=== PATIENT | female | born 1935 | race African-American/Black ===

== ENCOUNTER 2021-10-04 14:33 | Inpatient (IN) | payer MEDICARE ==
[~2021-10-04] VITALS: Ht 172.7 cm; Wt 100.0 kg
[~2021-10-04 14:33] MED LIST: AMLO5TAB4 PO; ATOR10TA PO; CLON0.2T PO; IBUP-1027 PO; ISOS60TA55 PO; LABE200T4 PO; METO100T7 PO; OLME20TA17 PO; PANT40TA77 PO; POLY17PO29 PO; SUCR1TAB35 PO
[2021-10-04 15:21] LABS: BASO # 0.1 x10^3/uL (0.0-0.2); BASO % 1 % (0-3); EOS # 0.1 x10^3/uL (0.0-0.7); EOS % 2 % (0-3); HEMATOCRIT 36.5 % (36.0-47.0); HEMOGLOBIN 12.4 g/dL (12.0-15.5); LYMPH # 0.9 x10^3/uL (1.0-4.8); LYMPH % 16 % (24-48); MEAN CORPUSCULAR HEMOGLOBIN 30 pg (25-35); MEAN CORPUSCULAR HGB CONC 34 g/dL (31-37); MEAN CORPUSCULAR VOLUME 87 fL (79-100); MONO # 0.7 x10^3/uL (0.0-1.1); MONO % 12 % (0-9); NEUT # 3.9 x10^3/uL (1.8-7.7); NEUT % 69 % (31-73); PLATELET COUNT 216 x10^3/uL (140-400); RED BLOOD COUNT 4.19 x10^6/uL (3.50-5.40); RED CELL DISTRIBUTION WIDTH 13.8 % (11.5-14.5); WHITE BLOOD COUNT 5.7 x10^3/uL (4.0-11.0)
[2021-10-04 15:30] LABS: CALCIUM 9.2 mg/dL (8.5-10.1); CREATININE 1.5 mg/dL (0.6-1.0); GFR 39.7; POTASSIUM 4.1 mmol/L (3.5-5.1)
[2021-10-04 15:37] LABS: ALBUMIN 3.4 g/dL (3.4-5.0); ALBUMIN/GLOBULIN RATIO 0.9 (1.0-1.7); TOTAL BILIRUBIN 0.5 mg/dL (0.2-1.0); TOTAL PROTEIN 7.2 g/dL (6.4-8.2)
--- NOTE | 2021-10-04 16:08 | RAD ---
Study: XR CHEST 1V Indication: Chest pain. Comparison: 06/18/2016 Findings: The cardiomediastinal silhouette is prominent in size. Aortic calcific atherosclerosis. Symmetric hil a. Increased lung markings bilaterally and hazy increased attenuation at the right lung base. A componen t of atelectasis and summation artifact is favored to account for the appearance of the lung bases. N o layering effusion or pneumothorax. Osteopenia. Advanced arthrosis at the shoulders. Impression: Prominence of the cardiomediastinal silhouette. Increased lung markings could be in part from interst itial edema but there is no layering effusion. Electronically signed by: ELFEGO CAMP MD (10/04/2021 4:05 PM) [facility]
--- NOTE | 2021-10-04 16:28 | EKG ---
[facility] [address] [place] [address] Test Date: 2021-10-04 Test Time: 16:11:45 Pat Name: CYNDI TORRES Department: Room: Gender: F Template Fitter: : 1935 Requested By: CHADWICK BEAVERS Order Number: [id number] Reading MD: Robert Oates MD Measurements Intervals [place] Rate: 71 P: 26 NC: 172 QRS: -24 QRSD: 90 T: 24 QT: 492 QTc: 535 Interpretive Statements PROBABLE SR BASELINE ARTIFACT RECOMMEND REPEAT EKG Electronically Signed On 10-05-2021 13:25:54 WELDING TEACHER by Robert Oates MD
--- NOTE | 2021-10-04 16:29 | PHYS DOC ---
Past Medical History Past Medical History: Arthritis, High Cholesterol, Hypertension Additional Past Medical Histor: "heart blockage",over active bladder Past Surgical History: Other Additional Past Surgical Histo: breast biopsy Smoking Status: Never Smoker Alcohol Use: None Drug Use: None General Adult EDM: Chief Complaint: RIB PAIN HPI: HPI: Patient is an 86-year-old female who presents to the emergency department today for left-sided rib pain that started this morning. Patient reports that the pain is worse with movement. She rates it 10 out of 10. No treatment prior to arrival.. She reports chronic shortness of breath due to CHF. She denies nausea, vomiting, cough, fevers, injuries, falls, abdominal pain. Review of Systems: Review of Systems: Constitutional: See HPI Respiratory: See HPI Cardiovascular: See HPI GI: See HPI Musculoskeletal: See HPI Heart Score: C/O Chest Pain: Yes HEART Score for Chest Pain: HEART Score for Chest Pain Response (Comments) Value History Slighlty/Non-Suspicious 0 ECG Normal 0 Age > 65 2 Risk Factors >3 Risk Factors or Hx CAD 2 Troponin < Normal Limit 0 Total 4 Risk Factors: Risk Factors: DM, Current or recent (<one month) smoker, HTN, HLP, family history of CAD, obesity. Risk Scores: Score 0 - 3: 2.5% MACE over next 6 weeks - Discharge Home Score 4 - 6: 20.3% MACE over next 6 weeks - Admit for Clinical Observation Score 7 - 10: 72.7% MACE over next 6 weeks - Early Invasive Strategies Allergies: Allergies: Allergies Coded Allergies Type Severity Reaction Last Updated Verified ciprofloxacin Allergy Intermediate 06/18/16 Yes clarithromycin Allergy Intermediate 06/18/16 Yes ezetimibe Allergy Intermediate 06/18/16 Yes Uncoded Allergies Type Severity Reaction Last Updated Verified antibiotic Adverse Reaction Mild 06/18/16 Physical Exam: PE: Constitutional: Well developed, well nourished, no acute distress, non-toxic appearance. [] HENT: Normocephalic, atraumatic, bilateral external ears normal, oropharynx moist, no oral exudates, nose normal. [] Eyes: PERRLA, EOMI, conjunctiva normal, no discharge. [] Neck: Normal range of motion, no tenderness, supple, no stridor. [] Cardiovascular:Heart rate regular rhythm, no murmur [] Lungs & Thorax: Bilateral breath sounds clear to auscultation [] Abdomen: Bowel sounds normal, soft, no tenderness, no masses, no pulsatile masses. [] Skin: Warm, dry, no erythema, no rash. [] Back: No tenderness, no CVA tenderness. [] Extremities: No tenderness, no cyanosis, no clubbing, ROM intact, no edema. [] Neurologic: Alert and oriented X 3, normal motor function, normal sensory function, no focal deficits noted. [] Psychologic: Affect normal, judgement normal, mood normal. [] Current Patient Data: Labs: Laboratory Tests Test 10/04/21 15:10 White Blood Count 5.7 x10^3/uL (4.0-11.0) Red Blood Count 4.19 x10^6/uL (3.50-5.40) Hemoglobin 12.4 g/dL (12.0-15.5) Hematocrit 36.5 % (36.0-47.0) Mean Corpuscular Volume 87 fL (79-100) Mean Corpuscular Hemoglobin 30 pg (25-35) Mean Corpuscular Hemoglobin Concent 34 g/dL (31-37) Red Cell Distribution Width 13.8 % (11.5-14.5) Platelet Count 216 x10^3/uL (140-400) Neutrophils (%) (Auto) 69 % (31-73) Lymphocytes (%) (Auto) 16 % (24-48) L Monocytes (%) (Auto) 12 % (0-9) H Eosinophils (%) (Auto) 2 % (0-3) Basophils (%) (Auto) 1 % (0-3) Neutrophils # (Auto) 3.9 x10^3/uL (1.8-7.7) Lymphocytes # (Auto) 0.9 x10^3/uL (1.0-4.8) L Monocytes # (Auto) 0.7 x10^3/uL (0.0-1.1) Eosinophils # (Auto) 0.1 x10^3/uL (0.0-0.7) Basophils # (Auto) 0.1 x10^3/uL (0.0-0.2) Sodium Level 140 mmol/L (136-145) Potassium Level 4.1 mmol/L (3.5-5.1) Chloride Level 107 mmol/L (98-107) Carbon Dioxide Level 29 mmol/L (21-32) Anion Gap 4 (6-14) L Blood Urea Nitrogen 23 mg/dL (7-20) H Creatinine 1.5 mg/dL (0.6-1.0) H Estimated GFR (Cockcroft-Gault) 39.7 BUN/Creatinine Ratio 15 (6-20) Glucose Level 115 mg/dL (70-99) H Calcium Level 9.2 mg/dL (8.5-10.1) Total Bilirubin 0.5 mg/dL (0.2-1.0) Aspartate Amino Transferase (AST) 24 U/L (15-37) Alanine Aminotransferase (ALT) 30 U/L (14-59) Alkaline Phosphatase 85 U/L (46-116) Troponin I High Sensitivity 10 ng/L (4-50) Total Protein 7.2 g/dL (6.4-8.2) Albumin 3.4 g/dL (3.4-5.0) Albumin/Globulin Ratio 0.9 (1.0-1.7) L Laboratory Tests 10/04/21 15:10 Laboratory Tests 10/04/21 15:10 Vital Signs: Vital Signs Date Time Temp Pulse Resp B/P (MAP) Pulse Ox O2 Delivery O2 Flow Rate FiO2 10/04/21 14:51 99.4 79 18 182/88 (119) 98 Room Air 99.4 EKG: EKG: [] EKG performed by ER staff at 1503 shows sinus rhythm with rate of 73, poor EKG due to patient's tremors and it will need to be repeated, read by Dr. Everett at 1507 Repeat EKG performed at 1611 by ER staff shows sinus rhythm with a rate of 71, no STEMI read by Dr. Everett at 1614 Radiology/Procedures: Radiology/Procedures: []PROCEDURE: PORTABLE CHEST 1V Study: XR CHEST 1V Indication: Chest pain. Comparison: 06/18/2016 Findings: The cardiomediastinal silhouette is prominent in size. Aortic calcific atherosclerosis. Symmetric vidhi. Increased lung markings bilaterally and hazy increased attenuation at the right lung base. A component of atelectasis and summation artifact is favored to account for the appearance of the lung bases. No layering effusion or pneumothorax. Osteopenia. Advanced arthrosis at the shoulders. Impression: Prominence of the cardiomediastinal silhouette. Increased lung markings could be in part from interstitial edema but there is no layering effusion. Electronically signed by: ELFEGO CAMP MD (10/04/2021 4:05 PM) [facility] DICTATED and SIGNED BY: ELFEGO CAMP MD DATE: 10/04/21 [id number] 0 Course & Med Decision Making: Course & Med Decision Making Pertinent Labs and Imaging studies reviewed. (See chart for details) [] Patient presents to the emergency department for left-sided rib pain, it is worse with movement sharp and shooting. She has a history of hypertension, CHF, hyperlipidemia and obesity. Work-up in the ER consisted of blood work, EKG, chest x-ray. Chest x-ray showed increased lung markings indicating possible interstitial edema. CBC unremarkable. Patient's BUN and creatinine were mildly elevated but this is consistent with previous lab findings for patient. Patient's troponin was negative. Her heart score is 4. Due to this, I discussed patient's findings with her and she is agreeable to be admitted for serial troponins and cardiology consultation. I discussed patient's case with Dr. Rodriguez and he agreed to admit the patient under his services. ER bridge orders placed. 1757. Camilla Disclaimer: Camilla Disclaimer: This electronic medical record was generated, in whole or in part, using a voice recognition dictation system. Departure Departure Impression: Primary Impression: Chest pain Qualified Codes: R07.9 - Chest pain, unspecified Disposition: 09 ADMITTED INPATIENT Admitting Physician: Natasha Rodriguez Condition: STABLE Referrals: NATASHA RODRIGUEZ MD (PCP) CHADWICK BEAVERS DIRECTOR OF DANCE Oct 04, 2021 16:29
[2021-10-04] MEDS ORDERED: fentaNYL PF VIAL 100 MCG/2 ML VIAL IVP ONE (17:45)
[2021-10-04] MEDS ORDERED: fentaNYL PF VIAL 100 MCG/2 ML VIAL IV PRN (18:00)
[2021-10-04] MEDS ORDERED: LOSA-73 PO (20:28)
[2021-10-04] MEDS ORDERED: MONT10TA49 PO (20:28)
[2021-10-04] MEDS ORDERED: FURO40TA4 PO (20:28)
[2021-10-04] MEDS ORDERED: ASPI-630 PO (20:30)
[2021-10-04 20:35] VITALS: BP 197/90
[2021-10-04] MEDS ORDERED: ACET500T33 PO (20:53)
[2021-10-04] MEDS ORDERED: CALC300T5 PO (22:14)
[2021-10-04] MEDS ORDERED: ACETAMINOPHEN 500 MG TABLET PO PRN (22:45)
[2021-10-04] MEDS ORDERED: POLYETHYLENE GLYCOL 3350 17 GM PACKET. PO PRN (22:45)
[2021-10-04] MEDS ORDERED: CALCIUM CARBONATE 500 MG TAB.CHEW PO PRN (23:00)
[2021-10-04 23:03] VITALS: BP 197/94
[2021-10-05] MEDS: ACETAMINOPHEN 325 MG TABLET. PO PRN ×2 (00:56→12:06)
[2021-10-05] MEDS: hydrALAZINE 20 MG/ML VIAL. IVP PRN ×2 (01:00→09:04)
[2021-10-05 03:59] VITALS: BP 174/84
[2021-10-05 05:33] LABS: BASO % 1 % (0-3); EOS # 0.2 x10^3/uL (0.0-0.7); EOS % 4 % (0-3); HEMATOCRIT 36.9 % (36.0-47.0); HEMOGLOBIN 12.1 g/dL (12.0-15.5); LYMPH # 1.1 x10^3/uL (1.0-4.8); LYMPH % 25 % (24-48); MEAN CORPUSCULAR HEMOGLOBIN 29 pg (25-35); MEAN CORPUSCULAR HGB CONC 33 g/dL (31-37); MEAN CORPUSCULAR VOLUME 87 fL (79-100); MONO # 0.6 x10^3/uL (0.0-1.1); MONO % 14 % (0-9); NEUT # 2.5 x10^3/uL (1.8-7.7); NEUT % 57 % (31-73); PLATELET COUNT 210 x10^3/uL (140-400); RED BLOOD COUNT 4.23 x10^6/uL (3.50-5.40); RED CELL DISTRIBUTION WIDTH 14.2 % (11.5-14.5); WHITE BLOOD COUNT 4.4 x10^3/uL (4.0-11.0)
[2021-10-05 05:55] LABS: ALBUMIN 3.3 g/dL (3.4-5.0); ALBUMIN/GLOBULIN RATIO 1.1 (1.0-1.7); CALCIUM 8.8 mg/dL (8.5-10.1); CREATININE 1.2 mg/dL (0.6-1.0); GFR 51.4; POTASSIUM 3.5 mmol/L (3.5-5.1); TOTAL BILIRUBIN 0.5 mg/dL (0.2-1.0); TOTAL PROTEIN 6.3 g/dL (6.4-8.2)
[2021-10-05 07:00] VITALS: BP 202/93
[2021-10-05] MEDS: PANTOPRAZOLE 40 MG TABLET.DR. PO SCH (07:00)
[2021-10-05] MEDS: ASPIRIN CHEWABLE 81 MG TABLET. PO SCH (09:00)
[2021-10-05] MEDS: LOSARTAN POTASSIUM 50 MG TABLET. PO SCH (09:00)
[2021-10-05] MEDS: LABETALOL HCL 200 MG TABLET PO SCH ×2 (09:00→21:28)
[2021-10-05] MEDS: FUROSEMIDE 20 MG TABLET PO SCH (09:00)
[2021-10-05] MEDS: ISOSORBIDE MONONITRATE ER 30 MG TAB.ER.24H PO SCH (09:00)
--- NOTE | 2021-10-05 09:53 | PDOC ---
Provider Note Date of Service: DATE: 10/05/21 TIME: 09:52 Provider Note H&P [id number]. Justifications for Admission Other Justification NATASHA PATEL MD Oct 05, 2021 09:53
[2021-10-05] MEDS: POTASSIUM CHLORIDE 20 MEQ TABLET.ER. PO SCH (10:05)
[2021-10-05 11:00] VITALS: BP 189/85
--- NOTE | 2021-10-05 11:14 | PDOC2 ---
MEY SYED COMMUNICATIONS ENGINEERING TECHNICIAN 10/05/21 1114: CARDIAC CONSULT DATE OF CONSULT Date of Consult DATE: 10/05/21 TIME: 10:55 REASON FOR CONSULT Reason for Consult: Chest pain REFERRING PHYSICIAN Referring Physician: Atul SOURCE Source: Chart review HISTORY OF PRESENT ILLNESS HISTORY OF PRESENT ILLNESS This is an 86 yo female admitted for complaisn left sided rib pain. which is reproducible with movement. No nausea vomiting. No fever or chills. Could not remember and episode of falls or recent injury nor heavy lifting. She does have some SOA with exertion but she does not move as much. No palpitations. She has been vaccinated for covid-19. PAST MEDICAL HISTORY Cardiovascular: CHF, HTN, Hyperlipidemia GI: GERD Musculoskeletal: Osteoarthritis PAST SURGICAL HISTORY Past Surgical History: Breast Biopsy, Cataract Removal FAMILY HISTORY Family History noncontributory SOCIAL HISTORY Smoke: No ALCOHOL: none Lives: with Family CURRENT MEDICATIONS CURRENT MEDICATIONS Current Medications Medications (Trade) Dose Ordered Sig/Kam Route PRN Reason Start Time Stop Time Status Last Admin Dose Admin Hydralazine HCl (Apresoline Inj) 10 mg PRN Q4HRS PRN IVP ELEVATED BP, SEE COMMENTS 10/04/21 22:45 10/05/21 09:04 Acetaminophen (Tylenol) 650 mg PRN Q6HRS PRN PO MILD PAIN / TEMP > 100.3'F 10/04/21 23:00 10/05/21 00:56 ALLERGIES ALLERGIES: Coded Allergies: amlodipine (Verified Allergy, Intermediate, Swelling, 10/05/21) extremity swelling ciprofloxacin (Verified Allergy, Intermediate, 06/18/16) clarithromycin (Verified Allergy, Intermediate, 06/18/16) ezetimibe (Verified Allergy, Intermediate, 06/18/16) atorvastatin (Verified Allergy, Unknown, 10/05/21) ROS Review of System 14 point ROS evaluated with pertinent positives noted per HPI PHYSICAL EXAM General: Alert, Oriented X3, Cooperative, No acute distress HEENT: Atraumatic, Mucous membr. moist/pink Lungs: Clear to auscultation, Normal air movement Heart: Regular rate (SR), Normal S1, Normal S2, No murmurs Abdomen: Soft, No tenderness Extremities: No cyanosis, No edema Skin: No breakdown, No significant lesion Neuro: Sensation intact Psych/Mental Status: Mental status NL, Mood NL MUSCULOSKELETAL: Osteoarthritic changes both hands VITALS/I&O VITALS/I&O: Vital Signs Date Time Temp Pulse Resp B/P (MAP) Pulse Ox O2 Delivery O2 Flow Rate FiO2 10/05/21 09:04 71 202/93 10/05/21 08:30 Room Air 10/05/21 07:00 98.6 20 93 98.6 I & O 10/04/21 10/04/21 10/05/21 15:00 23:00 07:00 Intake Total 240 ml 300 ml Output Total 325 ml 550 ml Balance -85 ml -250 ml LABS Lab: Laboratory Tests Test 10/04/21 15:10 10/04/21 18:30 10/05/21 05:00 White Blood Count 5.7 x10^3/uL (4.0-11.0) 4.4 x10^3/uL (4.0-11.0) Red Blood Count 4.19 x10^6/uL (3.50-5.40) 4.23 x10^6/uL (3.50-5.40) Hemoglobin 12.4 g/dL (12.0-15.5) 12.1 g/dL (12.0-15.5) Hematocrit 36.5 % (36.0-47.0) 36.9 % (36.0-47.0) Mean Corpuscular Volume 87 fL (79-100) 87 fL (79-100) Mean Corpuscular Hemoglobin 30 pg (25-35) 29 pg (25-35) Mean Corpuscular Hemoglobin Concent 34 g/dL (31-37) 33 g/dL (31-37) Red Cell Distribution Width 13.8 % (11.5-14.5) 14.2 % (11.5-14.5) Platelet Count 216 x10^3/uL (140-400) 210 x10^3/uL (140-400) Neutrophils (%) (Auto) 69 % (31-73) 57 % (31-73) Lymphocytes (%) (Auto) 16 % (24-48) L 25 % (24-48) Monocytes (%) (Auto) 12 % (0-9) H 14 % (0-9) H Eosinophils (%) (Auto) 2 % (0-3) 4 % (0-3) H Basophils (%) (Auto) 1 % (0-3) 1 % (0-3) Neutrophils # (Auto) 3.9 x10^3/uL (1.8-7.7) 2.5 x10^3/uL (1.8-7.7) Lymphocytes # (Auto) 0.9 x10^3/uL (1.0-4.8) L 1.1 x10^3/uL (1.0-4.8) Monocytes # (Auto) 0.7 x10^3/uL (0.0-1.1) 0.6 x10^3/uL (0.0-1.1) Eosinophils # (Auto) 0.1 x10^3/uL (0.0-0.7) 0.2 x10^3/uL (0.0-0.7) Basophils # (Auto) 0.1 x10^3/uL (0.0-0.2) 0.0 x10^3/uL (0.0-0.2) Sodium Level 140 mmol/L (136-145) 143 mmol/L (136-145) Potassium Level 4.1 mmol/L (3.5-5.1) 3.5 mmol/L (3.5-5.1) Chloride Level 107 mmol/L (98-107) 107 mmol/L (98-107) Carbon Dioxide Level 29 mmol/L (21-32) 28 mmol/L (21-32) Anion Gap 4 (6-14) L 8 (6-14) Blood Urea Nitrogen 23 mg/dL (7-20) H 18 mg/dL (7-20) Creatinine 1.5 mg/dL (0.6-1.0) H 1.2 mg/dL (0.6-1.0) H Estimated GFR (Cockcroft-Gault) 39.7 51.4 BUN/Creatinine Ratio 15 (6-20) 15 (6-20) Glucose Level 115 mg/dL (70-99) H 115 mg/dL (70-99) H Calcium Level 9.2 mg/dL (8.5-10.1) 8.8 mg/dL (8.5-10.1) Total Bilirubin 0.5 mg/dL (0.2-1.0) 0.5 mg/dL (0.2-1.0) Aspartate Amino Transferase (AST) 24 U/L (15-37) 23 U/L (15-37) Alanine Aminotransferase (ALT) 30 U/L (14-59) 27 U/L (14-59) Alkaline Phosphatase 85 U/L (46-116) 82 U/L (46-116) Troponin I High Sensitivity 10 ng/L (4-50) 10 ng/L (4-50) 12 ng/L (4-50) Total Protein 7.2 g/dL (6.4-8.2) 6.3 g/dL (6.4-8.2) L Albumin 3.4 g/dL (3.4-5.0) 3.3 g/dL (3.4-5.0) L Albumin/Globulin Ratio 0.9 (1.0-1.7) L 1.1 (1.0-1.7) SARS-CoV-2 Antigen (Rapid) Negative (NEGATIVE) TQ-Uqo-Q-Type Natriuretic Peptide 209 pg/mL (0-449) Laboratory Tests 10/04/21 15:10 10/05/21 05:00 Laboratory Tests 10/04/21 15:10 10/05/21 05:00 ASSESSMENT/PLAN ASSESSMENT/PLAN 1. Atypical chest pain: MSK 2. HTN urgency: missed meds 3. HLP 4. Chronic diastolic CHF: compensated 5. PUI: vaccinated 6. Mild VISHAL: likely dehydration Recommendations 1. Given her risk factors and reported HUITRON will arrange for outpt lexiscan. 2. Continue secondary prevention measures 3. Has not take home BP meds yet will restart. 4. anticipate DC today PATRICK ARROYO MD 10/05/21 1645: CARDIAC CONSULT ASSESSMENT/PLAN ASSESSMENT/PLAN Pt. seen and examined. Agree with above FERMENTING CELLAR DROPPER note. Supportive care. MEY SYED APRN Oct 05, 2021 11:14 PATRICK ARROYO MD Oct 05, 2021 16:45
--- NOTE | 2021-10-05 11:23 | HP ---
DATE OF SERVICE: 10/05/2021 ADMIT DATE: 10/04/2021 HISTORY OF PRESENT ILLNESS: This 86 years old female started having pains in the chest Wed night. Yesterday morning, the pain was worse. The pain is sharp and worse with movement. There is no history of fall. The patient also had pain in the left side of the abdomen and the flank that was radiating to her left hip. She also has occasional back pain. Because of the severe pain, she came to the emergency room and was admitted for further evaluation and management. She is known to have history of hypertension, coronary artery disease, osteoarthritis, and chronic kidney disease stage III. Because of the chest pain and multiple risk factors, the patient was admitted for further evaluation and management. SYSTEMS REVIEW: At present time, the patient states that she did have some nasal drainage and slight congestion last night. She denies any fever, chills, cough, dyspnea, dizziness or diaphoresis. She does admit to some joint pains and back pain. She denies any abdominal pain, nausea, vomiting. She does admit to occasional heartburn. She denies any leg swelling. Other systems reviewed and are negative. She is not a good historian. PAST MEDICAL HISTORY: The patient has a history of hypertension, low back pain, osteoarthritis, overactive bladder, coronary artery disease, hyperlipidemia, hypertension. She has chronic kidney disease stage III. Mixed hyperlipidemia. PAST SURGICAL HISTORY: Breast biopsy. MEDICATIONS: Reviewed and reconciled. ALLERGIES: THE PATIENT IS ALLERGIC TO ATORVASTATIN, CALCIUM. ALLERGIC TO CIPRO. CLARITHROMYCIN AND EZETIMIBE. PHYSICAL EXAMINATION: VITAL SIGNS: Temperature 98.6, pulse 71 per minute, respirations 20 per minute, blood pressure 202/93 mmHg. GENERAL: The patient is an elderly female who is alert, oriented and not in acute distress. EYES: Pupils reactive to light. Conjunctivae pink. Sclerae white. HENT: Unremarkable. SKIN: Warm and dry. There is no cyanosis. NECK: Supple. JVP normal. No thyromegaly. Trachea midline. LUNGS: Clear with decreased breath sounds at bases. CHEST: Left lower chest show mild pain with movement. CARDIOVASCULAR: S1, S2, regular. ABDOMEN: Soft, nontender, no guarding, no rigidity. Left kidney not palpable. Bowel sounds present. EXTREMITIES: No edema, no cyanosis, no calf tenderness. The patient has mild pain in the lumbar spine and knees with movement. LABORATORY FINDINGS: Sodium 140, potassium 4.1, BUN 23, creatinine 1.5, albumin 3.4, AST 24, ALT 30, calcium 9.2. Troponin levels are within normal limits 10, 10, 12. Sodium 143, potassium 3.5, BUN 18, creatinine 1.2 today. Albumin 3.3 today. Total protein is 6.3. BNP 209. Rapid COVID test is negative. Chest x-ray showed increased lung markings without any effusion. IMPRESSION: 1. Chest pain, etiology not clear. So far, no evidence of myocardial infarction. 2. Hypertensive crisis. The patient is n.p.o., so blood pressure medications are on hold orally, so IV hydralazine was given. 3. Chronic kidney disease stage III. 4. Coronary artery disease. 5. Hyperlipidemia. 6. Osteoarthritis. 7. Overactive bladder. PLAN: Consult carbon blocks press operator for cardiology evaluation and management. Because of the hypertensive crisis, we will continue IV hydralazine. I have added oral hydralazine also and restart oral medications as soon as possible. We will continue to monitor her today and once her blood pressure is stable and she remains stable, then tomorrow we will be discharging her. We will await cardiology decision as to further workup. Continue home medications. For details, please refer to the orders. KATEY DR: Eugene TID: [id number]
--- NOTE | 2021-10-05 12:55 | RAD ---
EXAM: AP, lateral and lumbosacral spot views of the lumbar spine DATE: 10/05/2021 10:27 AM INDICATION: Reason: back pain / Spl. Instructions: / History: COMPARISON: No Prior FINDINGS: Rightward curvature of the thoracolumbar spine apex L2. Leftward curvature thoracic spine partially p rofiled. Severe disc height loss at L1-2, L2-3, moderate to severe disc height loss L3-4. Mild height loss of the L2 vertebral body, age-indeterminate compression fracture. IMPRESSION: 1. Mild height loss of the L2 vertebral body, age-indeterminate compression fracture. This can be fu rther assessed by CT or MRI if clinically indicated. 2. Advanced multilevel disc disease, L1-2, L2-3, L3-4. Electronically signed by: Kevin Cullen MD (10/05/2021 12:53 PM) [id number]
--- NOTE | 2021-10-05 14:50 | CARD ---
MR#: [id number] Date of Study: 10/05/2021 Ordering Physician: MEY SYED, Referring Physician: MEY SYED, Tech: Sharyn Mena Julisa, [facility] APPROVED REPORT EXAM: Two-dimensional and M-mode echocardiogram with Doppler and color Doppler. Other Information Quality : AverageHR: 88bpm INDICATION Dyspnea Congestive Heart Failure RISK FACTORS Hypertension Hyperlipidemia 2D DIMENSIONS Left Atrium(2D)4.0 (1.6-4.0cm)IVSd1.3 (0.7-1.1cm) Aortic Root(2D)3.3 (2.0-3.7cm)LVDd5.1 (3.9-5.9cm) LVOT Diameter2.0 (1.8-2.4cm)PWd1.3 (0.7-1.1cm) LVDs2.6 (2.5-4.0cm)FS (%) 49.2 % SV98.2 ml Aortic Valve AoV Peak Bunny.183.9cm/sAoV VTI31.0cm AO Peak GR.13.5mmHgLVOT VTI 28.96cm AO Mean GR.6mmHg Mitral Valve MV E Blidpcvn08.3cm/sMV E Peak Gr.5mmHg MV DECEL [id number] A Ypdyytod63.4cm/s MV E Mean Gr.2mmHgE/A Ratio0.6 TDI Lateral E' P. V5.05cm/sMedial E' P. V10.68cm/s E/Lateral E'11.3E/Medial E'5.4 Tricuspid Valve TR P. Khrfyfxc853ka/sRAP [id number] TR Peak Gr.48yjJcQNTE54zzVi LEFT VENTRICLE The left ventricle is normal size. There is mild concentric left ventricular hypertrophy. The left ve ntricular systolic function is normal and the ejection fraction is within normal range. The Ejection Fraction is 55-60%. There is normal LV segmental wall motion. Transmitral Doppler flow pattern is Gra de I-abnormal relaxation pattern. RIGHT VENTRICLE The right ventricle is normal size. There is normal right ventricular wall thickness. The right ventr icular systolic function is normal. ATRIA The left atrium is mildly dilated. The right atrium is borderline dilated. The interatrial septum is intact with no evidence for an atrial septal defect or patent foramen ovale as noted on 2-D or Dopple r imaging. AORTIC VALVE The aortic valve is normal in structure and function. Doppler and Color Flow revealed no significant aortic regurgitation. There is no significant aortic valvular stenosis. Calculated aortic valve area is 2.32 cm2 with maximum pressure gradient of 17 mmHg and mean pressure gradient of 8 mmHg. MITRAL VALVE The mitral valve is normal in structure and function. There is no evidence of mitral valve prolapse. There is no mitral valve stenosis. Doppler and Color-flow revealed trace mitral regurgitation. TRICUSPID VALVE The tricuspid valve is normal in structure and function. Doppler and Color Flow revealed trace tricus pid regurgitation with an estimated PAP of 25 mmHg. There is no tricuspid valve stenosis. PULMONIC VALVE The pulmonic valve is not well visualized. Doppler and Color Flow revealed no pulmonic valvular regur gitation. GREAT VESSELS The aortic root is normal in size. The IVC is normal in size and collapses >50% with inspiration. PERICARDIAL EFFUSION There is no evidence of significant pericardial effusion. Critical Notification Critical Value: No <Conclusion> The left ventricle is normal size. The left ventricular systolic function is normal and the ejection fraction is within normal range. The Ejection Fraction is 55-60%. There is mild concentric left ventricular hypertrophy. Doppler and Color Flow revealed no significant aortic regurgitation. There is no significant aortic valvular stenosis. Doppler and Color-flow revealed trace mitral regurgitation. Doppler and Color Flow revealed trace tricuspid regurgitation with an estimated PAP of 25 mmHg. Signed by : Jacek Machado MD Electronically Approved : 10/05/2021 14:49:38
[2021-10-05 15:00] VITALS: BP 151/71
--- NOTE | 2021-10-05 15:05 | NUR ---
SS following for discharge planning. SS reviewed pt chart and discussed with pt RN. Pt is from home and is currently on room air. COVID19 negative. Cardiology consulted. ECHO today. SS will continue to follow for discharge planning.
[2021-10-05 19:00] VITALS: BP 143/65
[2021-10-05] MEDS ORDERED: MONTELUKAST SODIUM 10 MG TABLET. PO SCH (21:00)
[2021-10-05 23:00] VITALS: BP 123/56
[2021-10-06 03:15] VITALS: BP 151/70
[2021-10-06 04:26] LABS: CREATININE 1.7 mg/dL (0.6-1.0); GFR 34.4; MAGNESIUM 2.2 mg/dL (1.8-2.4); POTASSIUM 3.7 mmol/L (3.5-5.1)
[2021-10-06] MEDS: PANTOPRAZOLE 40 MG TABLET.DR. PO SCH (06:21)
[2021-10-06 07:00] VITALS: BP 191/86
[2021-10-06] MEDS: POTASSIUM CHLORIDE 20 MEQ TABLET.ER. PO SCH (08:00)
[2021-10-06] MEDS: ISOSORBIDE MONONITRATE ER 30 MG TAB.ER.24H PO SCH (08:21)
[2021-10-06] MEDS: FUROSEMIDE 20 MG TABLET PO SCH (08:21)
[2021-10-06] MEDS: LABETALOL HCL 200 MG TABLET PO SCH (08:21)
[2021-10-06] MEDS: ASPIRIN CHEWABLE 81 MG TABLET. PO SCH (08:21)
[2021-10-06] MEDS: LOSARTAN POTASSIUM 50 MG TABLET. PO SCH (08:22)
[2021-10-06 09:30] VITALS: BP 170/78
[2021-10-06] MEDS ORDERED: POTA10TA12 PO (10:56)
[2021-10-06] MEDS ORDERED: HYDR-2869 PO (10:56)
--- NOTE | 2021-10-06 10:57 | DISCH ---
DISCHARGE INSTRUCTIONS Condition on Discharge Condition on Discharge: Stable Activity After Discharge Activity Instructions for Disc: Activity as tolerated Diet after Discharge Diet after Discharge: Cardiac Checks after Discharge Checks after discharge: Check blood press - daily Contacting the DRGalina after DC Call your doctor for: Concerns you may have Follow-Up Follow up with: in 1 week Follow Up With: Field Merchandiser NATASHA PATEL MD Oct 06, 2021 10:57
[2021-10-06 11:00] VITALS: BP 127/65
--- NOTE | 2021-10-06 11:47 | PDOC3 ---
IM DISCHARGE SUMMARY Date of Admission Date of Admission Date of Admission: Oct 05, 2021 at 15:26 Date of Discharge Date of Discharge 10/06/21 Primary Diagnosis Primary Diagnosis 1. Chest pain, etiology not clear. So far, no evidence of myocardial infarction. 2. Hypertensive crisis. The patient is n.p.o., so blood pressure medications are on hold orally, so IV hydralazine was given. 3. Chronic kidney disease stage III. 4. Coronary artery disease. 5. Hyperlipidemia. 6. Osteoarthritis. 7. Overactive bladder. Consults Consults Robert Oates MD Labs Labs Laboratory Tests Test 10/06/21 03:45 Sodium Level 140 mmol/L (136-145) Potassium Level 3.7 mmol/L (3.5-5.1) Chloride Level 105 mmol/L (98-107) Carbon Dioxide Level 28 mmol/L (21-32) Anion Gap 7 (6-14) Blood Urea Nitrogen 29 mg/dL (7-20) H Creatinine 1.7 mg/dL (0.6-1.0) H Estimated GFR (Cockcroft-Gault) 34.4 Glucose Level 111 mg/dL (70-99) H Calcium Level 9.0 mg/dL (8.5-10.1) Magnesium Level 2.2 mg/dL (1.8-2.4) Laboratory Tests 10/06/21 03:45 Brief hospital course Brief hospital course This 86 years old female started having pains in the chest Friday night. Yesterday morning, the pain was worse. The pain is sharp and worse with movement. There is no history of fall. The patient also had pain in the left side of the abdomen and the flank that was radiating to her left hip. She also has occasional back pain. Because of the severe pain, she came to the emergency room and was admitted for further evaluation and management. She is known to have history of hypertension, coronary artery disease, osteoarthritis, and chronic kidney disease stage III. Because of the chest pain and multiple risk factors, the patient was admitted for further evaluation and management. For more details regarding the past history, family history, social history, surgical history and other details, please refer to the H&P. Consult [facility] for cardiology evaluation and management. Because of the hypertensive crisis, we will continue IV hydralazine. I have added oral hydralazine also and restart oral medications as soon as possible. We will continue to monitor her today and once her blood pressure is stable and she remains stable, then tomorrow we will be discharging her. Echocardiogram 10/05/21 The left ventricle is normal size. The left ventricular systolic function is normal and the ejection fraction is within normal range. The Ejection Fraction is 55-60%. There is mild concentric left ventricular hypertrophy. Doppler and Color Flow revealed no significant aortic regurgitation. There is no significant aortic valvular stenosis. Doppler and Color-flow revealed trace mitral regurgitation. Doppler and Color Flow revealed trace tricuspid regurgitation with an estimated PAP of 25 mmHg. Blood pressure is better controlled. Patient is feeling much better. she does not have any pain. Condition and treatment discussed with the patient and her daughter. Okay to discharge today. She will follow up with the [facility] in 2 weeks to see if any further work-up is needed. Medications Medications reviewed and reconciled for discharge. Home Meds Active Scripts Potassium Chloride (KLOR-CON 10) 10 Meq Tablet.er, 1 TAB PO DAILY for diuretic use for 30 Days, #30 TAB 5 Refills Prov:NTAASHA PATEL MD 10/06/21 Hydralazine Hcl (HYDRALAZINE HCL) 50 Mg Tablet, 50 MG PO TID for HTN for 30 Days, #90 TAB 5 Refills Prov:NATASHA PATEL MD 10/06/21 Reported Medications Calcium Carbonate (TUMS) 300 Mg Tab.chew, 300 MG PO PRN Q2HRS PRN for INDIGESTION, TAB.CHEW 10/04/21 Acetaminophen (TYLENOL EXTRA STRENGTH) 500 Mg Tablet, 2 TAB PO PRN Q6HRS PRN for PAIN, TAB 10/04/21 Aspirin (ASPIRIN) 81 Mg Tab.chew, 1 TAB PO DAILY for blood thinner, #30 TAB 3 Refills 10/04/21 Losartan Potassium (LOSARTAN POTASSIUM) 50 Mg Tablet, 50 MG PO DAILY for H YPERTENSION, TAB 10/04/21 Furosemide (FUROSEMIDE) 40 Mg Tablet, 0.5 TAB PO DAILY for blood pressure, #30 TAB 5 Refills 10/04/21 Montelukast Sodium (MONTELUKAST SODIUM TABLET ) 10 Mg Tablet, 10 MG PO HS for FOR allergies, TAB 0 Refills 10/04/21 Pantoprazole Sodium (PROTONIX ) 40 Mg Tablet.dr, 1 TAB PO DAILY, #30 TAB 5 Refills 06/22/16 Isosorbide Mononitrate (ISOSORBIDE MONONITRATE ER) 60 Mg Tab.er.24h, 1 TAB PO DAILY, #30 TAB 5 Refills 06/22/16 Labetalol Hcl (LABETALOL HCL) 200 Mg Tablet, 200 MG PO BID for blood pressure 06/22/16 Polyethylene Glycol 3350 (MIRALAX) 17 Gm Powd.pack, 1 PACKET PO DAILY PRN for CONSTIPATION, #30 PACKET 3 Refills 06/19/16 Allergy Allergies Coded Allergies Type Severity Reaction Last Updated Verified amlodipine Allergy Intermediate Swelling 10/05/21 Yes ciprofloxacin Allergy Intermediate 06/18/16 Yes clarithromycin Allergy Intermediate 06/18/16 Yes ezetimibe Allergy Intermediate 06/18/16 Yes atorvastatin Allergy Unknown 10/05/21 Yes Follow up in 5 days. DISPOSITION: Home Comments Discharge Management - 35 minutes. For other details please refer to discharge instructions Justicifation of Admission Dx: Justifications for Admission: Justification of Admission Dx: Comment: (Chest pain with hypertensive crisis) NATASHA PATEL MD Oct 06, 2021 11:46
--- NOTE | 2021-10-06 12:45 | NUR ---
DISCHARGED PATIENT HOME. DISCHARGE INSTRUCTIONS GIVEN. PIV AND HEART MONITOR REMOVED. ESCORTED PATIENT OFF UNIT INTO A PRIVATE VEHICLE.
== END 2021-10-06 12:45 | disposition home or self-care (01) | DRG 305 ==
LOC: ER 14:33 → 6 SOUTH 18:02 → OBSVTOIN 10-05 15:26
PROVIDERS: ADMIT Internal Medicine; ATTEND Internal Medicine
DX: I16.0 Hypertensive urgency (principal); I50.32 Chronic diastolic (congestive) heart failure; N17.9 Acute kidney failure, unspecified; R07.89 Other chest pain; I13.0 Hypertensive heart and chronic kidney disease with heart failure and stage 1 through stage 4 chronic kidney disease, or unspecified chronic kidney disease; E78.2 Mixed hyperlipidemia; E86.0 Dehydration; I25.10 Atherosclerotic heart disease of native coronary artery without angina pectoris; M19.90 Unspecified osteoarthritis, unspecified site; N18.30 Chronic kidney disease, stage 3 unspecified; N32.81 Overactive bladder; K21.9 Gastro-esophageal reflux disease without esophagitis; Z88.8 Allergy status to other drugs, medicaments and biological substances; Z20.822 Contact with and (suspected) exposure to COVID-19
CPT/HCPCS: 36415; 71045; 72100; 80048; 80053; 83735; 83880; 84484; 85025; 87426; 93005; 93306; G0378; G0379; J0360; U0003; U0005; 99285-25